=== PATIENT | female | born 1990 | race Caucasian/White ===

== ENCOUNTER 2023-06-09 09:04 | Emergency (ER) | payer OTHER ==
[~2023-06-09] VITALS: Ht 160 cm; Wt 64.9 kg
[2023-06-09 10:37] LABS: HEMATOCRIT 33.1 % (36.0-45.00); HEMOGLOBIN 11.2 g/dL (12.0-15.00); MEAN CELL VOLUME 94.5 fL (80.00-100.00); MEAN CORPUSCULAR HEMOGLOBIN 32.2 pg (27.00-32.0); PLATELET COUNT 280 K/uL (150-450); RED CELL DISTRIBUTION WIDTH 13.4 % (11.5-14.5)
[2023-06-09 10:43] LABS: CALCIUM 8.3 mg/dL (8.5-10.1); CREATININE SERUM 0.56 mg/dL (0.55-1.02); GFR 125.45; POTASSIUM 3.46 mEq/L (3.5-5.1)
[2023-06-09 12:47] LABS: URINE APPEARANCE CLEAR; URINE BILIRRUBIN NEGATIVE (NEGATIVE); URINE COLOR YELLOW; URINE GLUCOSE NEGATIVE (NEGATIVE)
[2023-06-09 12:48] LABS: URINE BLOOD TRACE; URINE EPITHELIAL CELLS 37.4 uL (0.0-38.8); URINE LEUKOCYTE TRACE; URINE NITRATE NEGATIVE; URINE PROTEIN NEGATIVE (NEGATIVE); URINE RBC 18.3 uL (0.0-20.8); URINE WBC 36.6 uL (0.0-23.2)
[2023-06-09 12:49] LABS: URINE BACTERIA 2849.9 uL (0.0-1933)
== END 2023-06-09 16:14 | disposition home or self-care (01) ==
LOC: ER 09:05
PROVIDERS: Emergency Medicine
DX: O21.9 Vomiting of pregnancy, unspecified (principal); Z3A.26 26 weeks gestation of pregnancy; Z88.2 Allergy status to sulfonamides

== ENCOUNTER 2023-08-30 14:00 | Inpatient (IN) | payer OTHER ==
[~2023-08-30] VITALS: Ht 152.4 cm; Wt 71.2 kg
[2023-09-04] MEDS ORDERED: PRENATABS RX T1 EACH PO (12:43)
[2023-09-04] MEDS ORDERED: OXYTOCIN 500 ML IV ONE (13:00)
[2023-09-04] MEDS ORDERED: RINGERS SOLUTION,LACTATED 1,000 ML IV SCH (13:30)
[2023-09-04 13:51] LABS: HEMOGLOBIN 10.5 g/dL (12.0-15.00); MEAN CELL VOLUME 85.4 fL (80.00-100.00); MEAN CORPUSCULAR HEMOGLOBIN 28.1 pg (27.00-32.0); MEAN CORPUSCULAR HGB CONC 32.9 g/dl (32.0-36.0); PLATELET COUNT 306 K/uL (150-450); RED BLOOD COUNT 3.75 M/uL (4.00-6.00); RED CELL DISTRIBUTION WIDTH 15.6 % (11.5-14.5)
[2023-09-04 14:16] LABS: INR < 0.93; PARTIAL THROMBOPLASTIN TIME 31.1 SECONDS (22.0-34.0); PROTHROMBIN TIME 9.5 SECONDS (9.0-11.5)
[2023-09-04] MEDS ORDERED: CITRIC ACID/SODIUM CITRATE 30 ML BLIST.PACK PO ONE ×2 (17:05→17:45)
[2023-09-04] MEDS ORDERED: CEFAZOLIN SODIUM 1,000 MG VIAL ONE (17:05)
[2023-09-04] MEDS ORDERED: CEFAZOLIN SODIUM 1,000 MG VIAL IV ONE (17:45)
[2023-09-04] MEDS ORDERED: OXYTOCIN 10 UNITS/ML VIAL ONE (17:46)
[2023-09-04] MEDS ORDERED: ERYTHROMYCIN BASE 3.5 GM OINT...G. OP ONE (17:46)
[2023-09-04] MEDS ORDERED: OXYTOCIN 10 UNITS/ML VIAL IV ONE (18:30)
[2023-09-04] MEDS ORDERED: ERYTHROMYCIN BASE 1 GM TUBE OP ONE (18:30)
[2023-09-04] MEDS ORDERED: IBUprofen 400 MG TABLET PO PRN (19:15)
[2023-09-04] MEDS ORDERED: OXYTOCIN 1,000 ML IV SCH (19:15)
[2023-09-04] MEDS ORDERED: MEPERIDINE HCL/PF 50 MG/ML VIAL IM PRN (19:15)
[2023-09-05] MEDS ORDERED: IBUprofen 400 MG TABLET PO PRN (08:30)
[2023-09-05] MEDS ORDERED: OxyCODONE HCL/APAP UD (PERCOCET) PO PRN (08:30)
[2023-09-05] MEDS ORDERED: IRON/V.C/V.B12/FOLIC A/VIT. E 1 CAPL CAPLET PO SCH (09:00)
[2023-09-05 13:32] LABS: HEMATOCRIT 29.7 % (36.0-45.00); HEMOGLOBIN 9.7 g/dL (12.0-15.00); MEAN CELL VOLUME 85.1 fL (80.00-100.00); MEAN CORPUSCULAR HEMOGLOBIN 27.8 pg (27.00-32.0); MEAN CORPUSCULAR HGB CONC 32.7 g/dl (32.0-36.0); PLATELET COUNT 279 K/uL (150-450); RED CELL DISTRIBUTION WIDTH 16.2 % (11.5-14.5)
[2023-09-06] MEDS ORDERED: FF) RHO(D) IMMUNE GLOBULIN (POM) IM ONE (08:15)
[2023-09-06] MEDS ORDERED: BISACODYL 10 MG/SUPP.RECT SUPP.RECT RECTAL ONE (11:30)
== END 2023-09-07 13:15 | disposition home or self-care (01) | DRG 788 ==
LOC: OB/GYN 09-04 12:32 → LDR 09-04 12:32 → OB/GYN 09-04 20:00
PROVIDERS: Obstetrics & Gynecology; ADMIT Obstetrics & Gynecology Maternal & Fetal Medicine; ATTEND Obstetrics & Gynecology Maternal & Fetal Medicine
PROC: 4A1HXCZ Monitoring of Products of Conception, Cardiac Rate, External Approach (ICD-10-PCS; 2023-09-04)
PROC: 10D00Z1 Extraction of Products of Conception, Low, Open Approach (ICD-10-PCS; principal; 2023-09-04 18:30)
DX: O33.8 Maternal care for disproportion of other origin (principal); Z3A.38 38 weeks gestation of pregnancy; Z37.0 Single live birth; Z20.822 Contact with and (suspected) exposure to COVID-19

== ENCOUNTER 2025-05-09 15:51 | Outpatient (CLI) | payer OTHER ==
[~2025-05-09] VITALS: Ht 152.4 cm; Wt 70.8 kg
[~2025-05-09 15:51] MED LIST: PRENATABS RX T1 EACH PO
[2025-05-09 16:39] VITALS: BP 107/61
[2025-05-09] MEDS ORDERED: RINGERS SOLUTION,LACTATED 1,000 ML IV SCH (17:00)
[2025-05-09 17:30] LABS: BASO % 0.2 % (0.1-1.2); EOS # 0.19 (0.04-0.54); EOS % 1.6 % (0.7-7.0); LYMPH # 2.07 (1.18-3.74); LYMPH % 17.2 % (19.3-53.1); MEAN PLATELET VOLUME 9.90 fl (9.4-12.4); MONO # 0.99 (0.24-0.82); MONO % 8.2 % (4.7-12.5); NEUT # 8.65 (1.56-6.13); NEUT % 72.1 % (34.0-71.1); RED CELL DISTRIBUTION WIDTH 13.7 % (11.6-14.4)
[2025-05-09 18:06] LABS: INR < 0.93
[2025-05-09 19:10] VITALS: BP 104/57; O2SAT 98
[2025-05-09 23:07] VITALS: BP 93/54
[2025-05-10 03:13] VITALS: BP 97/54
[2025-05-10 03:15] VITALS: BP 87/51; O2SAT 100
[2025-05-10 06:15] VITALS: BP 118/71; O2SAT 100
[2025-05-10 09:23] VITALS: BP 118/71
== END 2025-05-10 09:52 | disposition home or self-care (01) ==
LOC: OBS/DEL 15:51 → NST 15:51 → OBS/DEL 16:54
PROVIDERS: ATTEND Obstetrics & Gynecology Gynecology
DX: O26.893 Other specified pregnancy related conditions, third trimester (principal); Z3A.36 36 weeks gestation of pregnancy

== ENCOUNTER 2025-05-17 11:04 | Inpatient (IN) | payer OTHER ==
[~2025-05-17] VITALS: Ht 152.4 cm; Wt 3.6 kg
[2025-05-17 11:25] LABS: BASO % 0.3 % (0.1-1.2); EOS # 0.20 (0.04-0.54); EOS % 1.8 % (0.7-7.0); LYMPH # 1.58 (1.18-3.74); LYMPH % 14.6 % (19.3-53.1); MEAN PLATELET VOLUME 10.00 fl (9.4-12.4); MONO # 0.78 (0.24-0.82); MONO % 7.2 % (4.7-12.5); NEUT # 8.16 (1.56-6.13); NEUT % 75.4 % (34.0-71.1); RED CELL DISTRIBUTION WIDTH 14.1 % (11.6-14.4)
[2025-05-17 12:06] LABS: INR < 0.93
[2025-05-17 12:09] LABS: ALT/SGPT 29.0 U/L (12-78); AST/SGOT 25.0 U/L (15-37); BILIRUBIN TOTAL 0.56 mg/dL (0.3-1.2); BUN CREA RATIO 12.0 (7.0-25.0); CREATININE SERUM 0.42 mg/dL (0.55-1.02); GFR 172.71; GLOBULINA 3.6 G/DL (2.4-3.5); GLUCOSE FASTING 81.0 mg/dL (65-100); OSMOLALITY SERUM 276.0 MOSM/KG (275-295)
[2025-05-19 21:46] VITALS: BP 109/59
[2025-05-19] MEDS ORDERED: MORPHINE SULFATE 4 MG/ML CARTRIDGE IV PRN (22:45)
[2025-05-19] MEDS ORDERED: RINGERS SOLUTION,LACTATED 1,000 ML IV SCH (22:45)
[2025-05-19] MEDS ORDERED: CITRIC ACID/SODIUM CITRATE 30 ML BLIST.PACK PO ONE (22:45)
[2025-05-19] MEDS ORDERED: TERBUTALINE SULFATE 1 MG/ML AMPUL SUBCUTANEO ONE (22:45)
[2025-05-19] MEDS ORDERED: CEFAZOLIN SODIUM 1,000 MG VIAL IV SCH (22:45)
[2025-05-19 23:28] VITALS: BP 118/63
[2025-05-20] MEDS ORDERED: ERYTHROMYCIN BASE OPHT 1GM EACH TUBE OP ONE (00:30)
[2025-05-20] MEDS ORDERED: OXYTOCIN 10 UNITS/ML VIAL IV ONE (00:30)
[2025-05-20] MEDS ORDERED: METHYLERGONOVINE MALEATE 0.2 MG/ML AMPUL IV ONE (01:15)
[2025-05-20] MEDS ORDERED: MORPHINE SULFATE 4 MG/ML CARTRIDGE IV PRN (01:45)
[2025-05-20] MEDS ORDERED: OXYTOCIN 1,000 ML IV SCH (01:45)
[2025-05-20 04:21] VITALS: BP 104/67
[2025-05-20 09:32] VITALS: BP 105/64
[2025-05-20] MEDS ORDERED: OxyCODONE HCL 5 MG TABLET (ROXICODONE) PO PRN (10:15)
[2025-05-20 11:01] LABS: BASO % 0.1 % (0.1-1.2); EOS # 0.00 (0.04-0.54); EOS % 0.0 % (0.7-7.0); LYMPH # 0.77 (1.18-3.74); LYMPH % 4.6 % (19.3-53.1); MEAN PLATELET VOLUME 10.20 fl (9.4-12.4); MONO # 1.05 (0.24-0.82); MONO % 6.2 % (4.7-12.5); NEUT # 14.86 (1.56-6.13); NEUT % 88.3 % (34.0-71.1); RED CELL DISTRIBUTION WIDTH 14.4 % (11.6-14.4)
[2025-05-20 16:06] VITALS: BP 101/62
[2025-05-21 00:53] VITALS: BP 121/75
[2025-05-21 08:14] VITALS: BP 103/65
[2025-05-21] MEDS ORDERED: IRON FUM,PS/FOLIC ACID/VITC/B3 1 CAP CAPSULE PO SCH (09:00)
[2025-05-21] MEDS ORDERED: NA PHOS,M-B/NA PHOS,DI-BA 1 BOTTLE ENEMA RECTAL ONE (13:45)
[2025-05-21] MEDS ORDERED: MAGNESIUM HYDROXIDE 30 ML BLIST.PACK PO NR (13:45)
[2025-05-21 15:13] VITALS: BP 95/55
[2025-05-22 00:39] VITALS: BP 94/66
[2025-05-22] MEDS ORDERED: FF) RHO(D) IMMUNE GLOBULIN (POM) IM NR (06:45)
[2025-05-22 08:23] VITALS: BP 115/73
== END 2025-05-22 12:07 | disposition home or self-care (01) | DRG 785 ==
LOC: LDR 05-19 22:05 → OB/GYN 05-19 22:05
PROVIDERS: Obstetrics & Gynecology; ADMIT Obstetrics & Gynecology Gynecology; ATTEND Obstetrics & Gynecology Gynecology
PROC: 4A1HXCZ Monitoring of Products of Conception, Cardiac Rate, External Approach (ICD-10-PCS; 2025-05-19)
PROC: 10D00Z1 Extraction of Products of Conception, Low, Open Approach (ICD-10-PCS; principal; 2025-05-20)
PROC: 0UB70ZZ Excision of Bilateral Fallopian Tubes, Open Approach (ICD-10-PCS; 2025-05-20)
PROC: 0DNW0ZZ Release Peritoneum, Open Approach (ICD-10-PCS; 2025-05-20)
DX: O99.892 Other specified diseases and conditions complicating childbirth (principal); N73.6 Female pelvic peritoneal adhesions (postinfective); O34.211 Maternal care for low transverse scar from previous cesarean delivery; Z3A.37 37 weeks gestation of pregnancy; Z37.0 Single live birth; Z30.2 Encounter for sterilization